=== PATIENT | female | born 1985 | race Caucasian/White ===

== ENCOUNTER 2020-10-18 11:21 | Outpatient (REF) | payer OTHER, SELFPAY ==
--- NOTE | ~2020-10-18 | US_ITS ---
EXAMINATION: US DIAGNOSTIC ULTRASOUND BREAST, RIGHT CLINICAL INFORMATION: Right breast itchiness. History of biopsy-proven fibroadenoma.. COMPARISON: Mammography of June 12, 2010. Await outside studies of [facility].. TECHNIQUE: Ultrasound of the breast is performed with real-time montaño scale imaging and color Doppler. FINDINGS: Targeted right breast ultrasound was then performed. In the retroareolar region there is a well-circumscribed hypoechoic lesion which is wider than it is tall without internal vascularity measuring approximately 1.6 x 1.2 x 0.8 cm in size. No suspicious regions of distal sound shadowing appreciated. Results are provided to the patient at time of visit by the technologist. US/US breast RT limited IMPRESSION: Right breast fibroadenoma with no mammographic or ultrasound abnormality in region of patient's itchiness. Will await comparison with prior studies from [facility] before giving final recommendations. ASSESSMENT: BI-RADS 0: Incomplete - Need Additional Imaging Evaluation RECOMMENDATION: Compare with outside studies.
--- NOTE | ~2020-10-18 | MM_ITS ---
EXAMINATION: MM DIAGNOSTIC DIGITAL BREAST TOMOSYNTHESIS, BILATERAL TARGETED RIGHT BREAST ULTRASOUND CLINICAL INFORMATION: Right breast itchiness for one year. History of previously biopsied fibroadenoma right breast. The lifetime risk of breast cancer based on the Tyrer-Cuzick Model is 8.5%. COMPARISON: Mammography: Previous studies from [facility] including needle biopsies performed around 2014 are not available at this time and will be obtained with final recommendations following that. Examination is compared to previous study performed here of 06/12/2010. TECHNIQUE: Digital breast tomosynthesis is performed in both the craniocaudal and mediolateral oblique views along with computer-aided detection (CAD). Synthesized 2D images are generated from the tomosynthesis. Targeted right breast ultrasound. FINDINGS: There are scattered areas of fibroglandular density (ACR BI-RADS breast composition Category b). Within the anterior superior lateral aspect of the right breast there is noted to be a density containing a marking clip measuring approximately 1.6 x 1.8 x 1.4 cm in size. On previous study of 06/12/2010 this measured approximately 1.2 x 1.1 x 0.6 cm in size. No new abnormal dominant mass or suspicious grouping of microcalcifications identified. Targeted right breast ultrasound was then performed. In the retroareolar region there is a well-circumscribed hypoechoic lesion which is wider than it is tall without internal vascularity measuring approximately 1.6 x 1.2 x 0.8 cm in size. No suspicious regions of distal sound shadowing appreciated. Results are provided to the patient at time of visit by the technologist. MM/MM tomosynthesis diagnostic BI IMPRESSION: Right breast fibroadenoma with no mammographic or ultrasound abnormality in region of patient's itchiness. Will await comparison with prior studies from [facility] before giving final recommendations. ASSESSMENT: BI-RADS 0: Incomplete - Need Additional Imaging Evaluation RECOMMENDATION: Compare with outside studies.
== END 2020-10-18 11:22 | disposition home or self-care (01) ==
LOC: HO.MAMMO 11:21
PROVIDERS: PCP Internal Medicine; Visit Provider Advanced Practice Midwife
DX: L29.8 Other pruritus (principal); D24.1 Benign neoplasm of right breast
CPT/HCPCS: 76642; 77062; 77066

== ENCOUNTER 2023-05-13 07:43 | Outpatient (REF) | payer OTHER, SELFPAY | END 2023-05-13 07:44 | disposition home or self-care (01) | LOC: HO.MDS 07:43 | PROVIDERS: Visit Provider Internal Medicine | DX: G35 Multiple sclerosis (principal) | CPT/HCPCS: 96365; 96366; 96375; J1200; J2930 ==

== ENCOUNTER 2023-05-14 07:45 | Outpatient (REF) | payer OTHER, SELFPAY | END 2023-05-14 07:46 | disposition home or self-care (01) | LOC: HO.MDS 07:45 | PROVIDERS: Visit Provider Internal Medicine | DX: G35 Multiple sclerosis (principal) | CPT/HCPCS: 96365; 96366; 96375; J1200; J2930 ==

== ENCOUNTER 2023-05-17 11:49 | Outpatient (REF) | payer OTHER, SELFPAY ==
[2023-05-17 12:54] LABS: Glucose Random 114 mg/dL (60-115); Potassium 3.6 mmol/L (3.3-5.1)
== END 2023-05-17 11:50 | disposition home or self-care (01) ==
LOC: HO.MDS 11:49
PROVIDERS: Visit Provider Internal Medicine
DX: G35 Multiple sclerosis (principal); Z79.899 Other long term (current) drug therapy
CPT/HCPCS: 36415; 82947; 84132; 96365; 96366; 96375; J1200; J2930

== ENCOUNTER 2023-05-18 11:30 | Outpatient (REF) | payer OTHER, SELFPAY | END 2023-05-18 11:31 | disposition home or self-care (01) | LOC: HO.MDS 11:30 | PROVIDERS: Visit Provider Internal Medicine | DX: G35 Multiple sclerosis (principal) | CPT/HCPCS: 96365; 96366; J1200; J2930 ==

== ENCOUNTER 2023-05-19 10:26 | Outpatient (REF) | payer OTHER, SELFPAY | END 2023-05-19 10:27 | disposition home or self-care (01) | LOC: HO.MDS 10:26 | PROVIDERS: Visit Provider Internal Medicine | DX: G35 Multiple sclerosis (principal) | CPT/HCPCS: 96365; 96366; 96375; J1200; J2930 ==

== ENCOUNTER 2023-09-02 15:32 | Outpatient (REF) | payer BC, MEDICAID, SELFPAY ==
[2023-09-02 18:15] LABS: Influenza A PCR NEGATIVE (Negative); Influenza B PCR NEGATIVE (Negative); Resp Syncy Virus RNA Qual PCR NEGATIVE (Negative); SARS COV2 PCR INHOUSE NEGATIVE (Negative)
== END 2023-09-02 15:33 | disposition home or self-care (01) ==
LOC: HO.CHCLNP 15:32
PROVIDERS: Visit Provider Internal Medicine
DX: Z11.52 Encounter for screening for COVID-19 (principal); Z20.822 Contact with and (suspected) exposure to COVID-19; J06.9 Acute upper respiratory infection, unspecified
CPT/HCPCS: 0241U

== ENCOUNTER 2024-07-14 12:08 | Outpatient (REF) | payer OTHER, BC, SELFPAY ==
--- OUTSIDE RECORDS SUMMARY | 2024-07-14 12:11 | XMS_ITS ---
Author Name [facility] Organization Unknown History of Medication Use Medication Directions Dispensed Refills Start Date End Date Stat Multiple Vitamin (multivitamin) capsule Take 1 capsule by mouth daily. 01/23/2024 active baclofen (LIORESAL) 10 MG tablet TAKE 1 TABLET(10 MG) BY MOUTH THREE TIMES DAILY 01/23/2024 active D3-1000 25 MCG (1000 UT) capsule Take by mouth daily. 01/23/2024 active gabapentin (NEURONTIN) 600 MG tablet TAKE 1 TABLET(600 MG) BY MOUTH AT BEDTIME 01/23/2024 active levothyroxine (SYNTHROID) tablet 175 mcg Take 1 tablet (175 mcg total) by mouth daily. 01/23/2024 active predniSONE (DELTASONE) tablet 10 mg 01/23/2024 active Problems Problem Status Onset Date Problem Type Date of Resoluti on Source Multiple sclerosis (HCC) active EncounterDiagnosisAct CTTHNE MG High risk medication use active EncounterDiagnosisAct CTT NEMG
== END 2024-07-14 12:09 | disposition home or self-care (01) ==
LOC: HO.MAMMO 12:08
PROVIDERS: PCP Internal Medicine; Visit Provider Internal Medicine
DX: Z12.31 Encounter for screening mammogram for malignant neoplasm of breast (principal)
CPT/HCPCS: 77063; 77067

== ENCOUNTER → 2024-07-14 12:15 | Outpatient (BNV) | payer OTHER, BC, SELFPAY | PROVIDERS: PCP Internal Medicine; Visit Provider Internal Medicine | DX: Z12.31 Encounter for screening mammogram for malignant neoplasm of breast (principal) | CPT/HCPCS: 77063; 77067 ==

== ENCOUNTER 2024-08-29 10:59 | Outpatient (REF) | payer BC, SELFPAY ==
--- NOTE | ~2024-08-29 | MM_ITS ---
EXAMINATION: MM DIAGNOSTIC DIGITAL BREAST TOMOSYNTHESIS, BILATERAL CLINICAL INFORMATION: Call back from for bilateral asymmetries. COMPARISON: Mammography: Comparison is made with relevant prior exams. TECHNIQUE: Digital breast mammography with tomosynthesis is performed in both the craniocaudal and mediolateral oblique views along with computer-aided detection (CAD). FINDINGS: There are scattered areas of fibroglandular density (ACR BI-RADS breast composition Category b). The previously seen bilateral asymmetries do not persist on additional imaging projections and likely represented overlapping breast tissue bilaterally. Oval mass in the upper outer right breast anterior depth with internal marker clip. There are no significant masses, abnormal calcifications, or other abnormalities. Results are provided to the patient at time of visit by the technologist. MM/MM tomosynthesis added view BI IMPRESSION: No mammographic evidence of malignancy. ASSESSMENT: BI-RADS BI-RADS 2 - Benign Findings RECOMMENDATION: 1 year F/U This patient's information was entered into a reminder system with a target due date for their next mammogram. Electronically signed by: Fatmata Albarran DO 08/29/2024 12:19 PM [facility]
--- OUTSIDE RECORDS SUMMARY | 2024-08-29 11:54 | XMS_ITS | Clinical Summary ---
Author Organization [facility] Address [address] [place] [address] Care Team Providers Care Independent Insurance Adjuster Name Role Phone Janiya Carty Primary Care Provider [phone] Allergies Active Allergy Reactions Criticality Noted Date Comments Interferon Beta-1a Hives 12/06/2018 Codeine Palpitations,Chest pain 04/28/2018 Medications * This document contains information received from the source organization and may not represent a complete record from that organization. levothyroxine (SYNTHROID, LEVOTHROID) 175 mcg tablet Take 175 mcg by mouth daily. 0 04/21/2018 Active multivitamin capsule Take 1 capsule by mouth daily. Active cholecalciferol (VITAMIN D3) 1,000 unit tablet Take 1,000 Units by mouth once a day. Active ibuprofen (MOTRIN) 800 mg tablet Take 800 mg by mouth daily as needed. 10/14/2021 Active multivitamin-ir on-folic acid 18-400 mg-mcg tablet TAKE 1 TABLET BY MOUTH EVERY DAY WITH FOOD 06/20/2022 Active baclofen (LIORESAL) 10 mg tabletIndicatio ns:Multiple sclerosis (HCC),Muscle spasticity Take 1 tablet (10 mg total) by mouth 3 times a day. 90 tablet 2 05/02/2024 Active gabapentin (NEURONTIN) 600 mg tabletIndicatio ns:Numbness and tingling of both legs Take 1 tablet (600 mg total) by mouth nightly. 30 tablet 3 06/01/2024 Active Active Problems Problem Noted Date Diagnosed Date Paresthesia and pain of extremity 05/28/2021 Assessment & Plan (11/18/2023 3:25 PM EDT): PLAN: 1. We will increase the dose of baclofen mostly at night. 2. We will add Flexeril as needed at night. Muscle spasticity 12/09/2020 Numbness and tingling of both legs 12/09/2020 Gait abnormality 10/31/2020 Tinnitus of right ear 10/10/2020 Acute reaction to stress 08/27/2020 Assessment & Plan (08/27/2020 4:37 PM EST): PLAN: 1. We will refer her to Behavioral Health. Low vitamin D level 04/22/2020 Assessment & Plan (11/18/2023 3:25 PM EDT): PLAN: 1. Continue with Vitamin D supplementation. Assessment & Plan (04/22/2023 9:59 AM EDT): PLAN: 1. Continue with Vitamin D supplementation. Assessment & Plan (08/27/2020 4:33 PM EST): PLAN: 1. Continue with Vitamin D supplementation. Assessment & Plan (04/22/2020 3:48 PM EDT): PLAN: 1. We will obtain Vitamin D levels and replete accordingly. Bilateral carpal tunnel syndrome 04/22/2020 Assessment & Plan (04/22/2020 3:47 PM EDT): PLAN: 1. We will send for wrist splints. 2. If symptoms do not improve, we will refer her to the hand clinic. Urinary urgency 01/16/2020 Assessment & Plan (04/22/2023 9:59 AM EDT): PLAN: 1. We discussed techniques to improve urgency. 2. We will refer her to urology if symptoms progress. Assessment & Plan (01/16/2020 4:54 PM EDT): PLAN: 1. We discussed techniques to improve urgency. 2. We will refer her to urology if symptoms progress. Multiple sclerosis 04/28/2018 Assessment & Plan (11/18/2023 3:24 PM EDT): PLAN: 1. We discussed 5 days of IV methylprednisolone followed by prednisone taper. 2. We will monitor closely. 3. We discussed the option of third dose of Lemtrada due to clinical activity. 4. We will follow the MRI of the brain in the summer. Assessment & Plan (04/22/2023 9:58 AM EDT): PLAN: 1. We will proceed with 5 days of IV methylprednisolone followed by prednisone taper. 2. We will monitor closely. 3. We discussed the option of third dose of Lemtrada due to clinical activity. Assessment & Plan (08/27/2020 4:32 PM EST): PLAN: 1. We will continue to monitor closely 2. We will obtain MRI of the Thoracic Spine due to symptoms in the lower extremities. 3. We discussed referral to Physical Therapy. 4. Continue with Vitamin D. Assessment & Plan (04/22/2020 2:54 PM EDT): PLAN: 1. We will continue to monitor closely 2. We will obtain MRI of the Brain and Cervical Spine next year to evaluate radiological stability of her disease. 3. We discussed referral to Physical Therapy. 4. Continue with Vitamin D. Assessment & Plan (01/16/2020 4:53 PM EDT): PLAN: 1. We will proceed with the second dose of Alemtuzumab in January. 2. We will obtain MRI of the Brain and Cervical Spine next year to evaluate radiological stability of her disease. 3. We discussed referral to Physical Therapy. 4. Continue with Vitamin D. Encounters Date Type Department Care Team Description 07/17/2024 myChart Message [facility] [address] [place] [address] Case Preparer And Liner: Erika Villafuerte MD X-ray results 07/14/2024 9:00 AM EST - 07/14/2024 11:59 PM EST Hospital Encounter [facility] [address] [place] [address] Enoch Mancera MD Pain in joint involving right ankle and foot Discharge Disposition: Home or Self Care (01) 07/14/2024 9:00 AM EST - 07/14/2024 11:59 PM EST Hospital Encounter [facility] [address] [place] [address] Enoch Mancera MD Chronic pain of right knee Discharge Disposition: Home or Self Care () 07/14/2024 8:00 AM EST Office Visit [facility] [address] [place] [phone] Case Preparer And Liner: Erika Villafuerte MD Multiple sclerosis (HCC) (Primary Dx); Chronic pain of right knee; Pain in joint involving right ankle and foot 06/01/2024 Refill [facility] [address] [place] [phone] Case Preparer And Liner: Esther Horowitz MD Numbness and tingling of both legs 06/01/2024 Refill [facility] [address] [place] [phone] Case Preparer And Liner: Esther Horowitz MD Numbness and tingling of both legs from Last 3 Months Immunizations Name Administration Dates Next Due Covid-19, Pfizer, mRNA, Catron valent, PF 30 mcg/0.3 mL dose (for ages 12 and older) 11/07/2020,10/17/2020 Family History Medical History Relation Name Comments Diabetes Father Diabetes Mother Multiple sclerosis Neg Hx Relation Name Status Comments Father Mother Social History Tobacco Use Types Packs/Day Years Used Date Smoking Tobacco: Former Cigarettes Q uit: 04/28/2010 Smokeless Tobacco: Never Tobacco Cessation:Counseling Given: Not Answered Alcohol Use Standard Drinks/Week Comments Yes 0 (1 standard drink = 0.6 oz pur e alcohol) Social Comments Unknown Sex and Gender Information Value Date Recorded Sex Assigned at Female 12/21/2023 3:01 PM EDT Legal Sex Female 10:09 AM EDT Gender Identity Female 12/21/2023 3:01 PM EDT Sexual Orientation Not on file Last Filed Vital Signs Vital Sign Reading Time Taken Comments Blood Pressure 128/85 07/14/2024 8:50 AM EST Pulse 72 07/14/2024 8:50 AM EST Temperature 35.9 ??C (96.6 ??F) 10/06/2021 10:56 AM E DT Respiratory Rate 18 04/22/2020 12:57 PM EDT Oxygen Saturation 97% 07/14/2024 8:50 AM EST Inhaled Oxygen Concentration - - Weight 93 kg (205 lb) 02/19/2020 8:22 AM EDT Height 157.5 cm (5' 2 ) 01/23/2019 1:49 PM EDT Body Mass Index 37.49 01/23/2019 1:49 PM EDT Plan of Treatment Upcoming Encounters Date Type Department Care Team (Late st Contact Info) Description 01/22/2025 11:00 AM EDT Office Visit [facility] [address] [place] [phone] Case Preparer And Liner: Esther Horowitz MD [address] [place] [phone] Health Maintenance Due Date Last Done Comments Cervical Cancer Screening 1983 HPV and Pap Smear 1983 Pap Smear 1983 Hepatitis B Vaccines (1 of 3 - 19+ 3-dose series) 2002 Varicella Vaccines (2 of 2 - 13+ 2-dose series) 10/29/2011 10/01/2011 Mammogram 2023 COVID-19 Vaccine (3 - 2023-2 5 season) 2024 11/07/2020, 10/17/2020 Influenza Vaccine (#1) 2024 7, 04/20/2016 Alcohol/Substance Use Screening 07/26/2024 Depression Screening and Follow-Up 07/26/2024 Social Drivers of Health Annual Screening 07/26/2024 DTaP,Tdap,and Td Vaccines (2 - Td or Tdap) 02/21/2025 02/21/2015 RSV Vaccine (60+ years old and patients) (1 - 1-dose 75+ series) 2058 HIV Screening Completed 04/28/2018 Hepatitis C Screening Completed 04/28/2018 Pneumococcal Vaccine: Pediatric (0-5 Years) and At-Risk Patients (6-64 Years) Aged Out No longer eligible based on patient's age to complete this topic Procedures * Due to [place] [employer] law, this organization might not be sharing negative HIV tests. Procedure Name Priority Date/Time Associated Diagnosis Comments XR KNEE 4+ VW RIGHT Routine 07/14/2024 9 :47 AM EST Chronic pain of right knee XR ANKLE 3+ VW RIGHT Routine 07/14/2024 9:47 AM EST Pain in joint involving right ankle and foot HEPATITIS C ANTIBODY W/REFLEX TO HCV RNA, QUANTITATIVE PCR Routine 04/28/2018 2:49 PM EDT Multiple sclerosis (CMS/HCC) (HCC) from Last 3 Months or Most Recently Relevant to Health Maintenance Results * Due to [place] [employer] law, this organization might not be sharing negative HIV tests. * X-Ray Knee Right 4+ Views (07/14/2024 9:47 AM EST) Anatomical Region Laterality Modality Lower Extremities, Knee Right Computed Radiography 07/15/2024 10:1 1 AM EST Impressions 07/15/2024 10:12 AM EST FINDINGS/IMPRESSION: No radiographic evidence of acute fracture or dislocation. Mild tricompartmental osteoarthritis. ??Mild proximal tibiofibular osteoarthritis. ??Small joint effusion. If this radiology report contains a blank impression section, it is an incomplete radiology report. ??Please contact the interpreting radiologist or applicable radiology division as soon as possible to obtain the completed interpretation. ? Workstation ID: [id number] Narrative 07/15/2024 10:12 AM EST COMPARISON: There are no prior studies available for comparison at this time. Resulting Agency Comment [id number] Procedure Note Hira Sanders MD - 07/15/2024 COMPARISON: There are no prior studies available for comparison at thistime. IMPRESSION: FINDINGS/IMPRESSION: No radiographic evidence of acute fracture ordislocation. Mild tricompartmental osteoarthritis. Mild proximaltibiofibular osteoarthritis. Small joint effusion. If this radiology report contains a blank impression section, it is anincomplete radiology report. Please contact the interpreting radiologistor applicable radiology division as soon as possible to obtain thecompleted interpretation. Workstation ID: [id number] us Enoch Mancera MD IMG XR PROCEDURES Final Result * XR Ankle 3+ vw Right (07/14/2024 9:47 AM EST) Anatomical Region Laterality Modality Lower Extremities, Ankle Right Compute d Radiography 07/15/2024 10:1 4 AM EST Impressions 07/15/2024 10:15 AM EST FINDINGS/IMPRESSION: No radiographic evidence of acute fracture or dislocation. The ankle mortise is congruent and symmetrical on this nonstress exam. ??Small calcaneal spurs. ?? If this radiology report contains a blank impression section, it is an incomplete radiology report. ??Please contact the interpreting radiologist or applicable radiology division as soon as possible to obtain the completed interpretation. ? Workstation ID: [id number] Narrative 07/15/2024 10:15 AM EST COMPARISON: There are no prior studies available for comparison at this time. Resulting Agency Comment [id number] Procedure Note Hira Sanders MD - 07/15/2024 COMPARISON: There are no prior studies available for comparison at thistime. IMPRESSION: FINDINGS/IMPRESSION: No radiographic evidence of acute fracture or dislocation. The anklemortise is congruent and symmetrical on this nonstress exam. Smallcalcaneal spurs. If this radiology report contains a blank impression section, it is anincomplete radiology report. Please contact the interpreting radiologistor applicable radiology division as soon as possible to obtain thecompleted interpretation. Workstation ID: [id number] Enoch Mancera MD IMG XR PROCEDURES Final Result * Hepatitis C Antibody w/Reflex to HCV RNA, Quantitative PCR (04/28/2018 2:49 PM EDT) Hepatitis C Antibody NON-REACT TIM NON-REACT TIM 05/04/2018 11:54 PM EDT [facility] Signal To Cut-Off 0.01 <1.00 05/04/2018 11:54 PM EDT [facility] Blood specimen (specimen) Structure of peripheral vein / Unknown Venipuncture / Unknown 04/28/2018 2:49 PM EDT 04/28/2018 2:58 PM EDT Narrative [facility] - 05/04/2018 11:54 PM EDT [facility] Received Date:[id number] us Eliud Voss MD LAB BLOOD ORDERABLES Edited R esult - Final [facility] [address], [place] [address], [facility] [address], [place] [address], from Last 3 Months or Most Recently Relevant to Health Maintenance Insurance HSNO/FREE CARE BCBS OUT OF STATE PPO [facility] Care Teams Independent Insurance Adjuster Relationship Specialty Start Date End Date Janiya Carty [address] [place] [address] PCP - General Internal Medicine 04/08/18
--- OUTSIDE RECORDS SUMMARY | 2024-08-29 11:54 | XMS_ITS | Encounter Summary ---
Author Organization [facility] Address [address] [place] [address] Care Team Providers Care Social Worker Clinical Name Role Phone Janiya Carty Primary Care Provider + [phone] Encounter Details Date Type Department Care Team (Late st Contact Info) Description 07/17/2024 myChart Message [facility] [address] [place] [address] [phone] Body Shop Worker: Erika Villafuerte MD [address] [place] [address] X-ray results Social History Tobacco Use Types Packs/Day Years Used Date Smoking Tobacco: Former Cigarettes Q uit: 04/28/2010 Smokeless Tobacco: Never Alcohol Use Standard Drinks/Week Comments Yes 0 (1 standard drink = 0.6 oz pur e alcohol) Social Comments Unknown Sex and Gender Information Value Date Recorded Sex Assigned at Female 12/21/2023 3:01 PM EDT Legal Sex Female 10:09 AM EDT Gender Identity Female 12/21/2023 3:01 PM EDT Sexual Orientation Not on file documented as of this encounter Plan of Treatment Upcoming Encounters Date Type Department Care Team (Late st Contact Info) Description 01/22/2025 11:00 AM EDT Office Visit [facility] [address] [place] [phone] Body Shop Worker: Esther Horowitz MD [address] [place] [address] documented as of this encounter Visit Diagnoses Not on filedocumented in this encounter Care Teams Social Worker Clinical Relationship Specialty Start Date End Date Janiya Carty [address] [place] [phone] PCP - General Internal Medicine 04/08/18 documented as of this encounter
--- OUTSIDE RECORDS SUMMARY | 2024-08-29 11:54 | XMS_ITS | Encounter Summary ---
Author Organization [facility] Address [address] [place] [address] Care Team Providers Care Psychological Aide Name Role Phone Janiya Carty MD Primary Care Provider [phone] Reason for Visit * Reason Onset Date Comments Triage 07/14/2022 Encounter Details Date Type Department Care Team ([facility] st Contact Info) Description 07/14/2022 Telephone [facility] [address] [place], [place] [phone] Janiya Carty MD [address] [place] [address] Triage Social History Tobacco Use Types Packs/Day Years Used Date Smoking Tobacco: Never Assessed Comments Unknown Sex and Gender Information Value Date Recorded Sex Assigned at Female 05/25/2022 10:20 AM EDT Legal Sex Female 10:20 AM EDT Gender Identity Female 05/25/2022 10:20 AM EDT Sexual Orientation Straight 05/25/2022 10 :20 AM EDT documented as of this encounter Miscellaneous Notes * Telephone Encounter - Cande Rendon RN - 07/14/2022 4:23 PM EST Called pt. She states that she received results of lab work done on 07/06/22 and her Bilirubin result is high. Pt. See's Neurologist for MS and he ordered lab. Pt. States that she gets treatments monthly and is unsure if her high bilirubin will affect treatments. Pt. Is concerned about level. Pt. Is going away on vacation on 07/17/22 until 07/27/2022. Pt. Was hoping for a TC from PCP to explain possible reason for elevated Bilirubin level prior to 07/17/22. Appt. Made for pt. To see PCP on 07/28/2022 at 11:15am. Will send this note to PCP. * Telephone Encounter - Sav Padilla - 07/14/2022 4:21 PM EST Patient calling to report high bilirubin level. Duration of [address] Carty documented in this encounter Plan of Treatment Not on file documented as of this encounter Visit Diagnoses Not on filedocumented in this encounter Care Teams Psychological Aide Relationship Specialty Start Date End Date Janiya Carty MD [address] [place] [phone] PCP - General Internal Medicine 07/13/13 documented as of this encounter
--- OUTSIDE RECORDS SUMMARY | 2024-08-29 11:54 | XMS_ITS | Encounter Summary ---
Author Organization [facility] Address [address] [place] [address] Care Team Providers Care Residential Roofer Helper Name Role Phone Janiya Carty Primary Care Provider + [phone] Encounter Details Date Type Department Care Team (Late st Contact Info) Description 08/28/2020 Orders Only [facility] Interventional Radiology [address] [place] [address] Pepe San MD [address] [place] [address] [phone] Social History Tobacco Use Types Packs/Day Years [...] Description 01/22/2025 11:00 AM EDT Office Visit [facility] [address] [place] [phone] Design Engineer: Esther Horowitz MD [address] [place] [address] [phone] documented as of this encounter Visit Diagnoses Not on filedocumented in this encounter Care Teams Residential Roofer Helper Relationship Specialty Start Date End Date Janiya Carty [address] [place] [phone] PCP - General Internal Medicine 04/08/18 documented as of this encounter
--- OUTSIDE RECORDS SUMMARY | 2024-08-29 11:54 | XMS_ITS | Clinical Summary ---
Author Organization [facility] Address [address] [place] [address] Care Team Providers Care Physical Therapist Clinic Director Name Role Phone Janiya Carty MD Primary Care Provider [phone] Allergies Active Allergy Reactions Criticality Noted Date Comments Codeine Palpitations Low 04/19/2004 Other reaction(s): Chest pain Other reaction(s): Chest pain Interferon Beta-1a Hives 12/06/2018 Medications Medication Sig Dispensed Refills Start Date End Date Status baclofen (LIORESAL) 10 MG tablet TAKE 1 TABLET(10 MG) BY MOUTH THREE TIMES DAILY 0 04/17/2022 Active D3-1000 25 MCG (1000 UT) capsule Take by mouth daily. 0 05/15/2023 Active gabapentin (NEURONTIN) 600 MG tablet TAKE 1 TABLET(600 MG) BY MOUTH AT BEDTIME 0 06/20/2022 Active levothyroxine (SYNTHROID) tablet 175 mcg Take 1 tablet (175 mcg total) by mouth daily. 0 03/05/2023 Active Multiple Vitamin (multivitamin) capsule Take 1 capsule by mouth daily. 0 Active Social History Tobacco Use Types Packs/Day Years Used Date Smoking Tobacco: Never Assessed Tobacco Cessation:Counseling Given: Not Answered Sex and Gender Information Value Date Recorded Sex Assigned at Female 05/06/2023 12:32 PM EDT Gender Identity Not on file Sexual Orientation Not on file Job Start Date Occupation Industry Not on file Not on file Not on file Last Filed Vital Signs Vital Sign Reading Time Taken Comments Blood Pressure 105/73 08/09/2023 10:06 AM EST Pulse 68 08/09/2023 10:06 AM EST Temperature 36.1 ??C (97 ??F) 08/09/2023 10:06 AM EST Respiratory Rate - - Oxygen Saturation 98% 08/09/2023 10:06 AM EST Inhaled Oxygen Concentration - - Weight 85.3 kg (188 lb) 08/09/2023 10:06 AM EST Height 157.5 cm (5' 2 ) 08/09/2023 10:06 AM EST Body Mass Index 34.39 08/09/2023 10:06 AM EST Plan of Treatment Health Maintenance Due Date Last Done Comments Hepatitis B Vaccines (1 of 3 - 3-dose series) 1983 Hepatitis C Screening 1983 Depression Screening 1995 Preventative Health Evaluation 2001 Cervical Cancer Screening (Pap Smear) 2004 COVID-19 Vaccine (2023-2 5 season) 2024 11/07/2020, 10/17/2020 Influenza Vaccine (#1) 2024 7, 04/20/2016 DTap / Tdap / Td (2 - Td or Tdap) 02/21/2025 02/21/2015 Pneumococcal Vaccine Aged Out No long er eligible based on patient's age to complete this topic RSV Ped < 20 months Aged Out No longe r eligible based on patient's age to complete this topic Care Teams Physical Therapist Clinic Director Relationship Specialty Start Date End Date Janiya Carty MD [address] [place] [address] PCP - General Internal Medicine 05/06/23
--- OUTSIDE RECORDS SUMMARY | 2024-08-29 11:54 | XMS_ITS | Encounter Summary ---
Author Organization [facility] [employer] Address [address] [facility] 7 [place] [address] Care Team Providers Care Ear Machine Operator Name Role Phone Janiya Carty MD Primary Care Provider [phone] Encounter Details Date Type Department Care Team ([facility] st Contact Info) Description 06/05/2024 Orders Only [facility] MED & PEDS [address] [place], [place] [phone] Janiya Carty MD [address] [place] [address] Social History Tobacco Use Types Packs/Day Years Used Date Smoking Tobacco: Never Smokeless Tobacco: Never Alcohol Use Standard Drinks/Week Comments Never 0 (1 standard drink = 0.6 oz pur e alcohol) Depression Answer Date Recorded Patient Health Questionnaire-9 Score 3 06/04/2023 Patient Health Questionnaire-9 Score 3 06/04/2023 Last PHQ-9: Questionnaire Data Not on file 1 08/04/2022 Housing Stability Answer Date Recorded What is your housing situation today? I have josé rios 05/13/[address] you li ve. Do you have problems with any of the following? None of the above 05/13/2023 Food Insecurity Answer Date Recorded Within the past 12 months, y ou worried that your food would run out before you got money to buy more: Never True 05/13/2023 Within the past 12 months,th e food you bought just didn't last and you didn't have enough money to get more: Never True Transportation Answer Date Recorded In the past 12 months, has l ack of transportation kept you from medical appts, meetings, work or from getting things needed for daily living? No 05/13/2023 Utilities Answer Date Recorded In the past 12 months, has t he electric, gas, oil or water company threatened to shut off services in your home? No 05/13/2023 Depression Answer Date Recorded Patient Health Questionnaire-2 Score 0 06/04/2023 Comments Unknown Sex and Gender Information Value Date Recorded Sex Assigned at Female 05/25/2022 10:20 AM EDT Legal Sex Female 10:20 AM EDT Gender Identity Female 05/25/2022 10:20 AM EDT Sexual Orientation Straight 05/25/2022 10 :20 AM EDT documented as of this encounter Plan of Treatment Not on file documented as of this encounter Visit Diagnoses Not on filedocumented in this encounter Additional Health Concerns Assessment Noted Time PHQ-9 Depression Total Score: 3 06/04/20 23 2:31 PM EST documented as of this encounter Care Teams Ear Machine Operator Relationship Specialty Start Date End Date Janiya Carty MD [address] [place] [phone] PCP - General Internal Medicine 07/13/13 documented as of this encounter
--- OUTSIDE RECORDS SUMMARY | 2024-08-29 11:54 | XMS_ITS | Encounter Summary ---
Author Organization [facility] Address [address] [place] [address] Care Team Providers Care Telephone Quotation Clerk Name Role Phone Janiya Carty Primary Care Provider + [phone] Reason for Visit * Reason Onset Date Comments Reschedule 09/01/2021 Encounter Details Date Type Department Care Team (Late st Contact Info) Description 09/01/2021 Telephone [facility] Central Scheduling Department [address] [place] [phone] Telephone Intake, Staff Reschedule Social History Tobacco Use Types Packs/Day Years [...] on file documented as of this encounter Miscellaneous Notes * Telephone Encounter - Daniela Patiño - 09/01/2021 4:24 PM EST MS pt rescheduling 10/[address] Esther Quispe Per DT, could not reschedule available appts Pt will keep 10/06 appt documented in this encounter Plan of Treatment Upcoming Encounters Date Type Department Care Team (Late st Contact Info) Description 01/22/2025 11:00 AM EDT Office Visit [facility] [address] [place] [address] Planning Technician: Esther Horowitz MD [address] [place] [address] [phone] documented as of this encounter Visit Diagnoses Not on filedocumented in this encounter Care Teams Telephone Quotation Clerk Relationship Specialty Start Date End Date Janiya Carty [address] [place] [phone] PCP - General Internal Medicine 04/08/18 documented as of this encounter
--- OUTSIDE RECORDS SUMMARY | 2024-08-29 11:54 | XMS_ITS | Referral Summary ---
Author Organization [facility] Address [address] [place] [address] Care Team Providers Care Concrete Bucket Hooker Name Role Phone Janiya Carty Primary Care Provider [phone] Encounters Date Type Department Care Team Description 07/17/2024 myChart Message [facility] [address] [place] [address] Machine Sewer: Erika Villafuerte MD X-ray results 07/14/2024 9:00 AM EST - 07/14/2024 11:59 PM EST Hospital Encounter [facility] XRay [address] [place] [address] Enoch Mancera MD Pain in joint involving right ankle and foot Discharge Disposition: Home or Self Care () 07/14/2024 9:00 AM EST - 07/14/2024 11:59 PM EST Hospital Encounter [facility] XRay [address] [place] [address] Enoch Mancera MD Chronic pain of right knee Discharge Disposition: Home or Self Care () 07/14/2024 8:00 AM EST Office Visit [facility] [address] [place] [phone] Machine Sewer: Erika Villafuerte MD Multiple sclerosis (HCC) (Primary Dx); Chronic pain of right knee; Pain in joint involving right ankle and foot 06/01/2024 Refill [facility] [address] [place] [address] Machine Sewer: Esther Horowitz MD Numbness and tingling of both legs 06/01/2024 Refill [facility] [address] [place] [phone] Machine Sewer: Esther Horowitz MD Numbness and tingling of both legs from Last 3 Months Allergies Active Allergy Reactions Criticality Noted Date [...] Physical Therapy. 4. Continue with Vitamin D. Immunizations Name Administration Dates Next Due Covid-19, Pfizer, mRNA, Johnson valent, PF 30 mcg/0.3 mL dose (for ages 12 and older) 11/07/2020,10/17/2020 Social History Tobacco Use Types Packs/Day Years [...] Description 01/22/2025 11:00 AM EDT Office Visit [facility] [address] [place] [address] Machine Sewer: Esther Horowitz MD [address] [place] [address] Procedures * Due to [place] [employer] law, this organization might not be sharing [...] to Health Maintenance Results * Due to [place] [employer] law, this organization might not be sharing [...] obtain the completed interpretation. ? Workstation ID: [id number] Narrative 07/15/2024 10:12 AM EST COMPARISON: There are no prior studies available for comparison at this time. Resulting Agency Comment [id number] Procedure Note Hira Sanders MD - 07/15/2024 [...] possible to obtain thecompleted interpretation. Workstation ID: [id number] us Enoch Mancera MD IMG XR PROCEDURES [...] obtain the completed interpretation. ? Workstation ID: [id number] Narrative 07/15/2024 10:15 AM EST COMPARISON: There are no prior studies available for comparison at this time. Resulting Agency Comment [id number] Procedure Note Hira Sanders MD - 07/15/2024 [...] possible to obtain thecompleted interpretation. Workstation ID: [id number] us Enoch Mancera MD IMG XR PROCEDURES Final Result * Hepatitis C Antibody w/Reflex to HCV RNA, Quantitative PCR (04/28/2018 2:49 PM EDT) Hepatitis C Antibody NON-REACT TIM NON-REACT TIM 05/04/2018 11:54 PM EDT [employer] Signal To Cut-Off 0.01 <1.00 05/04/2018 11:54 PM EDT [employer] Blood specimen (specimen) Structure of peripheral vein / Unknown Venipuncture / Unknown 04/28/2018 2:49 PM EDT 04/28/2018 2:58 PM EDT Narrative TYESHA JONNY - 05/04/2018 11:54 PM EDT [facility] Received Date:[id number] us Eliud Voss MD LAB BLOOD ORDERABLES Edited R esult - Final [facility] [address] [facility] 3rd Floor, [place] [address], [place] [phone] [email or web address] [email or web address] [facility] [address] [facility] 3rd Floor, [place] [address], [place] [phone] from Last 3 Months or Most Recently Relevant to Health Maintenance Insurance HSNO/FREE CARE BCBS OUT OF STATE PPO [facility] Care Teams Concrete Bucket Hooker Relationship Specialty Start Date End Date Janiya Carty [address] [place] [phone] PCP - General Internal Medicine 04/08/18
--- OUTSIDE RECORDS SUMMARY | 2024-08-29 11:55 | XMS_ITS | Clinical Summary ---
Author Organization [employer] Address [address] [facility] 7t [place] [address] Care Team Providers Care French Lecturer Name Role Phone Janiya Carty MD Primary Care Provider [phone] Allergies Active Allergy Reactions Criticality Noted Date Comments Buspirone 11/23/2014 Other reaction(s): chest pain Codeine Palpitations Low 09/30/2016 Other reaction(s): Chest pain Interferon Beta-1a Hives 12/06/2018 Medications baclofen (Lioresal) 10 MG tablet Take 1 tablet (10 mg total) by mouth 3 times a day. 04/17/2022 Active biotin 10 MG tablet 2 tablets by mouth daily 12/08/2017 Active Multiple Vitamins-Minera ls (QC Multi-Annabel) tablet TAKE 1 TABLET BY MOUTH EVERY DAY WITH FOOD 06/20/2022 Active levothyroxine (Synthroid, Levoxyl) 175 MCG tablet Take 175 mcg by mouth 1 (one) time each day. 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 We will send for wrist splints. 2. If symptoms do not improve, we will refer her to the hand clinic. Multiple sclerosis 04/28/2018 Overview (07/23/2022): Last Assessment & Plan: PLAN: 1. We will continue to monitor closely 2. We will obtain MRI of the Thoracic Spine due to symptoms in the lower extremities. 3. We discussed referral to Physical Therapy. 4. Continue with Vitamin D. Elevated blood-pressure read ing without diagnosis of hypertension 04/15/2017 Allergic rhinitis 11/18/2011 Migraine 11/18/2011 Obesity 11/18/2011 Encounters Date Type Department Care Team Description 07/14/2024 Orders Only [facility] MED [facility] [address] [place] [address] Janiya Carty MD 06/05/2024 Orders Only [facility] [address] [place] [address] Janiya Carty MD from Last 3 Months Immunizations Name Administration Dates Next Due Influenza injectable quadriv alent IIV4 with preservative 04/15/2017,04/20/2016 Tdap 02/21/2015 Varicella 10/01/2011 Social History Tobacco Use Types Packs/Day Years Used Date Smoking Tobacco: Never Smokeless Tobacco: Never Tobacco Cessation:Counseling Given: Not Answered Alcohol Use Standard Drinks/Week Comments Never 0 [...] Orientation Straight 05/25/2022 10 :20 AM EDT Last Filed Vital Signs Vital Sign Reading Time Taken Comments Blood Pressure 145/87 09/02/2023 1:48 PM EST Pulse 89 09/02/2023 1:48 PM EST Temperature 36.4 ??C (97.5 ??F) 09/02/2023 1:48 PM ES T Respiratory Rate 20 09/02/2023 1:48 PM EST Oxygen Saturation 98% 09/02/2023 1:48 PM EST Inhaled Oxygen Concentration - - Weight 83.5 kg (184 lb) 09/02/2023 1:48 PM EST Height 157.5 cm (5' 2 ) 09/02/2023 1:48 PM EST Body Mass Index 33.65 09/02/2023 1:48 PM EST Plan of Treatment Health Maintenance Due Date Last Done Comments HIV Screening 1983 Lipid Panel 1983 Alcohol/Substance Use Screening 1995 Family Planning (PISQ) 1998 Hepatitis C Screening 2001 Hepatitis B Vaccines (1 of 3 - 19+ 3-dose series) 2002 Pap Smear 10/09/2023 10/08/2020 COVID-19 Vaccine (3 - 2023-2 5 season) 2024 11/07/2020, 10/17/2020 Influenza Vaccine (#1) 2024 7, 04/20/2016 SDOH Screening 05/06/2024 05/06/2023 Depression Screening 06/04/2024 06/04/2023, 06/04/2023 Tobacco Screening 09/02/2024 09/02/2023 DTaP/Tdap/Td Vaccines (2 - T d or Tdap) 02/21/2025 02/21/2015 Cervical Cancer Screening 10/08/2025 HPV/Cotest 10/08/2025 10/08/2020 Mammogram 07/14/2026 07/14/2024 Zoster Vaccines (1 of 2) 2033 RSV Patients and Patients Aged 60 years or older (1 - 1-dose 75+ series) 2058 HIB Vaccines Aged Out No longer eligi ble based on patient's age to complete this topic HPV Vaccines Aged Out No longer eligi ble based on patient's age to complete this topic Hepatitis A Vaccines Aged Out No long er eligible based on patient's age to complete this topic IPV Vaccines Aged Out No longer eligi ble based on patient's age to complete this topic Meningococcal Vaccine Aged Out No huong leslie eligible based on patient's age to complete this topic Pneumococcal Vaccine: Pediatrics (0 to 5 Years) and At-Risk Patients (6 to 49) Years) Aged Out No longer eligible b ased on patient's age to complete this topic RSV under 20 months Aged Out No longe r eligible based on patient's age to complete this topic Rotavirus Vaccines Aged Out No longer eligible based on patient's age to complete this topic Procedures Procedure Name Priority Date/Time Associated Diagnosis Comments BI MAMMOGRAM SCREENING TOMOSYNTHESIS BILATERAL Routine 07/14/2024 12:11 PM EST HPV MRNA E6/E7 Routine 10/08/2020 11:01 AM EDT THINPREP PAP Routine 10/08/2020 11:01 AM EDT from Last 3 Months or Most Recently Relevant to Health Maintenance Results * BI Mammogram Screening Tomosynthesis Bilateral (07/14/2024 12:11 PM EST) Anatomical Region Laterality Modality Breast Bilateral Mammography 07/14/2024 12:1 1 PM EST Narrative 07/26/2024 12:28 PM EST ? [facility] ? [address] ?[place] [address] ? Mammography Report ? Signed ? Patient: Maravilla,Elyse ?MR#: [id number] ?? 16 ? : 1985 ?Acct:[id number] ? Age/Sex: 39 / F ?ADM Date: 07/14/24 ? Loc: HO.MAMMO ? Attending Dr: Janiya Carty MD ? Ordering Physician: Janiya Carty MD ?Results: 0 ?? Incomplete: Needs Additional Imaging Evaluation ? Date of Service: 07/14/24 ?Follow Up: Additional Imagi ?? ng ? Procedure(s): MM tomosynthesis screening BI ?? Accession Number(s): [id number] ? cc: Janiya Carty MD ? EXAMINATION: ?? MM SCREENING DIGITAL BREAST TOMOSYNTHESIS, BILATERAL ? CLINICAL INFORMATION: ? Screening. Asymptomatic. ? COMPARISON: ?? Mammography: Comparison is made with available priors ? TECHNIQUE: ?? Digital breast mammography with tomosynthesis is performed in both the ?? craniocaudal and mediolateral oblique views along with computer-aided ?? detection (CAD). ? FINDINGS: ?? The breasts are heterogeneously dense, which may obscure small masses ?? (ACR BI-RADS breast composition Category c). ?? Right: ?? Asymmetries in the superior breast retroareolar region and inferior ?? breast MLO view. ?? Asymmetry in the lateral breast middle depth on CC view. ?? No suspicious calcifications or other abnormal findings. ?? Marker clip within the circumscribed oval mass in the upper outer ?? breast. ? Left: ?? Asymmetries in the superior retroareolar region in the lower breast on ?? MLO view. ?? Asymmetry in the lateral breast middle depth on CC view. ?? No suspicious calcifications or other abnormal findings. ? MM/MM tomosynthesis screening BI ?? IMPRESSION: ?? Additional imaging is recommended ? ASSESSMENT: ? BI-RADS BI-RADS 0 - Incomplete: Needs additional Imaging. ? RECOMMENDATION: ?? 1. Additional views of the bilateral breasts ?? 2. Targeted ultrasound if warranted after review of the additional ?? views. ?? 3. Radiology department staff will contact the patient for additional ?? imaging. ? Additional Imaging required ? This examination should not preclude the clinical evaluation of a ?? suspicious palpable abnormality. ? This patient's information was entered into a reminder system with a ?? target due date for their next mammogram. ? Electronically signed by: ??Fatmata Albarran DO ??07/26/2024 12:26 PM EST ?? RP ? Dictated By: ?Fatmata Albarran DO ? Signed By: ?<Electronically signed by Fatmata Albarran, DO in OV> ? 07/26/24 1226 ? DD/ 1211 ? TD/TT: 07/14/24 1225 ? Hand Hardener: ? Procedure Note Campos, Ayden - 07/26/2024 [facility] [address] [place] [address] Dr. Man, ALIRIO [address] Mammography Report Signed Patient: Tejal MaravillaJacquelynAnderson#: [id number] 16 : 1985Acct:[id number] Age/Sex: 39 / FADM Date: 07/14/24 Loc: HO.MAMMO Attending Dr: Janiya Carty MD Ordering Physician: Janiya Carty MDResults: 0 Incomplete: Needs Additional Imaging Evaluation Date of Service: 07/14/24Follow Up: Additional Imagi ng Procedure(s): MM tomosynthesis screening BI Accession Number(s): [id number] cc: Janiya Carty MD EXAMINATION: MM SCREENING DIGITAL BREAST TOMOSYNTHESIS, BILATERAL CLINICAL INFORMATION: Screening. Asymptomatic. COMPARISON: Mammography: Comparison is made with available priors TECHNIQUE: Digital breast mammography with tomosynthesis is performed in both the craniocaudal and mediolateral oblique views along with computer-aided detection (CAD). FINDINGS: The breasts are heterogeneously dense, which may obscure small masses (ACR BI-RADS breast composition Category c). Right: Asymmetries in the superior breast retroareolar region and inferior breast MLO view. Asymmetry in the lateral breast middle depth on CC view. No suspicious calcifications or other abnormal findings. Marker clip within the circumscribed oval mass in the upper outer breast. Left: Asymmetries in the superior retroareolar region in the lower breast on MLO view. Asymmetry in the lateral breast middle depth on CC view. No suspicious calcifications or other abnormal findings. MM/MM tomosynthesis screening BI IMPRESSION: Additional imaging is recommended ASSESSMENT: BI-RADS BI-RADS 0 - Incomplete: Needs additional Imaging. RECOMMENDATION: 1. Additional views of the bilateral breasts 2. Targeted ultrasound if warranted after review of the additional views. 3. Radiology department staff will contact the patient for additional imaging. Additional Imaging required This examination should not preclude the clinical evaluation of a suspicious palpable abnormality. This patient's information was entered into a reminder system with a target due date for their next mammogram. Electronically signed by: Fatmata Albarran DO 07/26/2024 12:26 PM [facility] Dictated By: Fatmata Albarran DO Signed By: <Electronically signed by Fatmata Albarran DO in OV> 07/26/24 1226 DD/ 1211 TD/TT: 07/14/24 1225 Hand Hardener: Janiya Carty MD IMG BI PROCEDURES Edited Re sult - Final * THINPREP PAP (10/08/2020 11:01 AM EDT) Clinical Information: None given [facility] COMMENT SEE COMMENT [facility] Comment: EXPLANATORY NOTE: ? The Pap is a screening test for cervical cancer. It is ?? not a diagnostic test and is subject to false negative ?? and false positive results. It is most reliable when a ?? satisfactory sample, regularly obtained, is submitted ?? with relevant clinical findings and history, and when ?? the Pap result is evaluated along with historic and ?? current clinical information. ?? Elastic Cutter : SEE COMMENT [facility] Comment: WAC, CT(ASCP) CT screening location: [address] ??[address] Infection Fungal organisms morphologically consistent with Christy spp. [facility] Interpretation/R esult: Negative for intraepithelial lesion or malignancy. [facility] LMP: 09/23/20 [facility] Prev. BX: NONE GIVEN [facility] Prev. PAP: NONE GIVEN [facility] SOURCE: None given [facility] Statement Of Adequacy: SEE COMMENT [facility] Comment: Satisfactory for evaluation. Endocervical/transformation zone component absent. 10/08/2020 11:0 1 AM EDT Selin LOMAX LAB PATHOLOGY ORDERABLES Final Result [facility] [address] * HPV mRNA E6/E7 (10/08/2020 11:01 AM EDT) HPV nRNA E6/E7 Not Detected Not Detected [facility] Comment: Methodology: Seed Packer-Mediated Amplification This assay detects E6/E7 viral messenger RNA (mRNA) from 14 high-risk HPV types (16,18,31,33,35,39,45,51,52,56,58,59,66,68). ? The analytical performance characteristics of this assay have been determined by [employer]. The modifications have not been cleared or approved by the FDA. This assay has been validated pursuant to the CLIA regulations and is used for clinical purposes. ?? For additional information, please refer to http://education.KlickThru/faq/JUP572v8 (This link if provided for information/ educational purposes only.) 10/08/2020 11:0 1 AM EDT us Selin Gaona CNM LAB BLOOD ORDERABLES Tona josé manuel Result [facility] [address] from Last 3 Months or Most Recently Relevant to Health Maintenance Insurance [facility] PPO Care Teams French Lecturer Relationship Specialty Start Date End Date Janiya Carty MD [address] [place] [phone] PCP - General Internal Medicine 07/13/13
== END 2024-08-29 11:00 | disposition home or self-care (01) ==
LOC: HO.MAMMO 10:59
PROVIDERS: PCP Internal Medicine; Visit Provider Internal Medicine
DX: N64.89 Other specified disorders of breast (principal)
CPT/HCPCS: 77062; 77066

== ENCOUNTER → 2024-08-29 11:15 | Outpatient (BNV) | payer BC, SELFPAY | PROVIDERS: PCP Internal Medicine; Visit Provider Internal Medicine | DX: N63.11 Unspecified lump in the right breast, upper outer quadrant (principal) | CPT/HCPCS: 77062; 77066 ==